=== PATIENT | female | born 1960 | race Two or more races ===

== ENCOUNTER 2021-03-18 06:00 | Day surgery (SDC) | payer OTHER | END 2021-03-18 14:34 | disposition home or self-care (01) | LOC: AMB-ENDOS 06:00 | PROVIDERS: ATTEND Colon & Rectal Surgery | DX: K62.89 Other specified diseases of anus and rectum (principal); K64.1 Second degree hemorrhoids; Z20.822 Contact with and (suspected) exposure to COVID-19 ==

== ENCOUNTER 2022-01-25 08:30 | Inpatient (IN) | payer OTHER ==
[~2022-01-25] VITALS: Ht 157.5 cm; Wt 90.7 kg
[2022-01-25] MEDS ORDERED: TOPROL XL25 M1 PO (10:25)
[2022-01-25] MEDS ORDERED: ATIVAN0.5 M1 PO ×2 (10:25→10:27)
[2022-01-25] MEDS ORDERED: GABAPENT PO (10:26)
[2022-01-25] MEDS ORDERED: TRA PO (10:26)
[2022-01-25] MEDS ORDERED: LASIX40 MG PO (10:26)
[2022-01-25] MEDS ORDERED: PREMAR PO (10:27)
[2022-02-02] MEDS ORDERED: COLACE100 MG PO (12:00)
[2022-02-02] MEDS ORDERED: NEURONTIN800 MG PO (12:01)
[2022-02-02] MEDS ORDERED: PERCOCET 5-3251 EACH PO (12:01)
[2022-02-02] MEDS ORDERED: MEDROLPACK PO (12:01)
[2022-02-02] MEDS ORDERED: AMOX-CLAV 875-1 EACH PO (12:01)
== END 2022-02-03 12:42 | disposition home or self-care (01) | DRG 455 ==
LOC: SURH 01-30 08:30 → O/R 02-02 06:00 → SURH 02-02 08:30 → PED 02-02 15:57 → SURH 02-02 18:15 → PED 02-03 12:42
PROVIDERS: ADMIT Orthopaedic Surgery Orthopaedic Surgery of the Spine; ATTEND Orthopaedic Surgery Orthopaedic Surgery of the Spine
PROC: 0SG0071 Fusion of Lumbar Vertebral Joint with Autologous Tissue Substitute, Posterior Approach, Posterior Column, Open Approach (ICD-10-PCS; 2022-02-02)
PROC: 0QB30ZZ Excision of Left Pelvic Bone, Open Approach (ICD-10-PCS; 2022-02-02)
PROC: 0ST20ZZ Resection of Lumbar Vertebral Disc, Open Approach (ICD-10-PCS; 2022-02-02)
PROC: 07DR0ZZ Extraction of Iliac Bone Marrow, Open Approach (ICD-10-PCS; 2022-02-02)
PROC: 0SG00A0 Fusion of Lumbar Vertebral Joint with Interbody Fusion Device, Anterior Approach, Anterior Column, Open Approach (ICD-10-PCS; principal; 2022-02-02 14:10)
DX: M48.062 Spinal stenosis, lumbar region with neurogenic claudication (principal); M43.16 Spondylolisthesis, lumbar region; M51.36 Other intervertebral disc degeneration, lumbar region; I10 Essential (primary) hypertension; E11.9 Type 2 diabetes mellitus without complications